=== PATIENT | female | born 1970 | race Caucasian/White ===

== ENCOUNTER → 2021-01-20 09:08 | Outpatient (BNVA) | payer OTHER, SELFPAY | PROVIDERS: Visit Provider Nurse Practitioner Family | DX: R53.83 Other fatigue (principal); D64.9 Anemia, unspecified; Z13.6 Encounter for screening for cardiovascular disorders; E55.9 Vitamin D deficiency, unspecified; G89.29 Other chronic pain; M25.512 Pain in left shoulder; M54.5 Low back pain; M25.551 Pain in right hip | CPT/HCPCS: 80053; 80061; 81003; 82306; 83036; 83550; 84443; 85025 ==